=== PATIENT | male | born 1975 | race Caucasian/White ===

== ENCOUNTER 2020-11-23 16:58 | Outpatient (CLI) | payer OTHER, SELFPAY | END 2020-11-23 16:59 | disposition home or self-care (01) | LOC: ANHCOVIDVC 16:58 | PROVIDERS: PCP Family Medicine | DX: Z23 Encounter for immunization (principal) | CPT/HCPCS: 0001A; 91300 ==

== ENCOUNTER 2020-12-14 17:01 | Outpatient (CLI) | payer OTHER, SELFPAY | END 2020-12-14 17:02 | disposition home or self-care (01) | LOC: ANHCOVIDVC 17:01 | PROVIDERS: PCP Family Medicine | DX: Z23 Encounter for immunization (principal) | CPT/HCPCS: 0002A; 91300 ==

== ENCOUNTER 2024-11-26 00:43 | Inpatient (IN) | payer BC, SELFPAY ==
[2024-11-26] VITALS (15 sets, daily range): BP systolic 115–153; BP diastolic 51–102; PULSE 96–127; RESP 18–28; TEMP 36.7–38.1; O2SAT 90–100; BMI 38.6
--- NOTE | ~2024-11-26 | CT_ITS ---
CT of the Abdomen and Pelvis: Indication: Abdominal pain Technique: 2.5 mm axial scans were obtained through the abdomen and pelvis following intravenous adm inistration of 100 cc of Omnipaque 350. Dose reduction technique was used on this scan by utilizing a utomated exposure control and iterative reconstruction technique. The dose-length product (DLP) was 1 749.61 mGy-cm. Findings: Scans through the lung bases demonstrate 3 mm right middle lobe nodule. The liver, spleen, pancreas, adrenals and kidneys are within normal limits. There is cholelithiasis, including large peripherally calcified 3.9 cm stone. There is gallbladder wall thickening and pericho lecystic inflammatory change. There are atherosclerotic calcifications of the aorta. Small shotty ret roperitoneal lymph nodes are not enlarged by size criteria. No bowel obstruction or bowel wall thickening. There is no evidence to suggest acute appendicitis. Images through the pelvis were performed. Urinary bladder unremarkable. No pelvic mass. No ascites. Bilateral L5 pars interarticularis defects are noted. Impression: Acute cholecystitis with underlying cholelithiasis. Reviewed, dictated and finalized at [facility]. Impression: Acute cholecystitis with underlying cholelithiasis.
--- OUTSIDE RECORDS SUMMARY | 2024-11-26 00:46 | XMS_ITS | Clinical Summary ---
Author Organization [facility] Address [address] [place] [address] Care Team Providers Care Compounding And Finishing Supervisor Name Role Phone Mora Ashley RUPESH Primary Care Provider [phone] Allergies No known active allergies Medications varenicline, starter pack, (CHANTIX STARTING MONTH ) 0.5 MG X 11 & 1 MG X 42 tabletIndication s:Encounter for smoking cessation counseling,Clement goldberg smoker Days 1 to 3: 0.5 mg once daily.Days 4 to 7: 0.5 mg twice daily.Mainte nance (day 8 and later): 1 mg twice daily 53 tablet 5 Active tirzepatide (MOUNJARO) 2.5 MG/0.5ML injectionIndicat ions:Diabetes Mellitus Inject 2.5 mg into the skin every 7 days. Indications: Diabetes 6 mL 1 5 Active lisinopril (PRINIVIL) 10 MG tabletIndication s:Primary hypertension Take 1 tablet (10 mg total) by mouth daily. 90 tablet 3 5 Active atorvastatin (LIPITOR) 20 MG tabletIndication s:Dyslipidemia Take 1 tablet (20 mg total) by mouth nightly at bedtime. 90 tablet 3 5 Active metFORMIN ER (GLUCOPHAGE-XR) 500 MG 24 hr tabletIndication s:Type 2 diabetes mellitus with hyperglycemia, without long-term current use of insulin ([facility] HHS/HCC) Take 2 tablets (1,000 mg total) by mouth 2 (two) times daily with meals. 360 tablet 3 5 Active atorvastatin (LIPITOR) 20 MG tablet Take 1 tablet (20 mg total) by mouth. 11/09/19 Discontinu ed(Reorder ) lisinopril (PRINIVIL) 10 MG tablet Take 1 tablet (10 mg total) by mouth daily. 11/09/19 Discontinu ed(Reorder ) tirzepatide (MOUNJARO) 2.5 MG/0.5ML injectionIndicat ions:Diabetes Mellitus Inject 2.5 mg into the skin every 7 days. Indications: Diabetes 2 mL 1 11/09/19 Discontinu ed(Reorder ) Active Problems Problem Noted Date Diagnosed Date Dyslipidemia 11/10/2024 Current smoker 11/10/2024 Hypertension 08/23/2024 Type 2 diabetes mellitus wit h hyperglycemia, without long-term current use of insulin ([facility]) 08/23/2024 Vitamin D deficiency, unspecified 08/23/2024 Class 3 severe obesity due t o excess calories with serious comorbidity and body mass index (BMI) of 40.0 to 44.9 in adult 08/23/2024 Encounters Date Type Department Care Team Description 11/16/2024 Telephone [facility] Family & Internal Medicine [address] [phone] Mora Ashley FNP Lab Results 11/13/2024 9:55 AM CDT - 11/13/2024 11:59 PM CDT Hospital Encounter [facility] [place] [address] Mora Ashley FNP Discharge Disposition: Home or Self Care (Routine Discharge) 11/13/2024 Travel 11/08/2024 3:20 PM CDT Office Visit [facility] Internal [address] [phone] Mora Ashley FNP Diabetes (Patient here today 1 month f/u- starting mounjaro- tolerating well- no new concerns ); Nicotine Dependence (Patient would like to stop smoking ) 11/08/2024 Travel 09/23/2024 3:20 PM PROGRAMMING COORDINATOR Office Visit [facility] Family & Internal [address] [phone] Mora Ashley, RUPESH Hypertension (1 month follow up ); Diabetes (1 month follow up ) 09/23/2024 Travel from Last 3 Months Immunizations Immunization Administration Dates Next Due Fluzone (IIV3, Trivalent, 0.5 ML Prefilled Syrin ge) 08/23/2024 Influenza Adult (Generic) 05/26/2022 Pneumococcal (Prevnar 20) 08/23/2024 Tdap (Adacel) 08/23/2024 Family History Medical History Relation Comments Cancer Maternal Aunt 1 Cancer Maternal Aunt 2 Breast with mets Cancer Maternal Aunt 3 Pancreatic Cancer Maternal Grandmother Lung Cancer Maternal Uncle 1 Cancer Maternal Uncle 2 Lung Cancer Mother Lung with mets Dementia Mother Diabetes Mother Kidney Disease Mother Cancer Paternal Grandfather Colon with mets Diabetes Sister Relation Status Comments Maternal Aunt 1 Maternal Aunt 2 Maternal Aunt 3 Maternal Grandmother Maternal Uncle 1 Maternal Uncle 2 Mother Paternal Grandfather Sister Social History Tobacco Use Types Packs/Day Years Used Date Smoking Tobacco: Every Day Cigarettes 1.5 32.3 Started: 1992 Smokeless Tobacco: Never Tobacco Cessation:Ready to Q uit: Yes; Counseling Given: Yes Comments:Interested in quitting Alcohol Use Standard Drinks/Week Comments Yes 0 (1 standard drink = 0.6 oz pur e alcohol) Social/rare PHQ-2 Answer Date Recorded Patient Health Questionnaire-2 Score 0 08/23/2024 Sex and Gender Information Value Date Recorded Sex Assigned at Male 08/23/2024 9:06 AM PROGRAMMING COORDINATOR Legal Sex Male 7:57 PM CDT Gender Identity Male 08/23/2024 9:06 AM PROGRAMMING COORDINATOR Sexual Orientation Not on file Last Filed Vital Signs Vital Sign Reading Time Taken Comments Blood Pressure 124/76 11/08/2024 3:17 PM CDT Pulse 85 11/08/2024 3:17 PM CDT Temperature 36.4 C (97.5 F) 11/08/2024 3:17 PM CDT Respiratory Rate 18 11/08/2024 3:17 PM CDT Oxygen Saturation 98% 11/08/2024 3:17 PM CDT Inhaled Oxygen Concentration - - Weight 124 kg (273 lb 6.4 oz) 11/08/2024 3:17 PM CDT Height 172.7 cm (5' 8 ) 11/08/2024 3:17 PM CDT Body Mass Index 41.57 11/08/2024 3:17 PM CDT Plan of Treatment Upcoming Encounters Date Type Department Care Team (Late st Contact Info) Description 12/09/2024 3:00 PM CDT Office Visit [facility] Family & Internal Medicine - [address] [phone] Mora Ashley, BRAND ANALYST [address] [place] [id number] Health Maintenance Due Date Last Done Comments Colorectal Cancer Screening Colonoscopy (10 Years) 1976 Annual Physical 1979 Diabetes: Retinopathy Eye Exam 1994 Hepatitis C 1994 Hepatitis B Vaccines (1 of 3 - 19+ 3-dose series) 1995 Hemoglobin A1C 02/07/2025 11/08/2024, 08/23/2024 COVID-19 Vaccine ( season) 2025 05/26/2022, 09/16/2021, 12/14/2020, Additional history exists Postponed from 04/11/2024 (Patient Refused) Kidney Health Evaluation 11/13/2025 11/13/2024 Lipid Panel 11/13/2025 11/13/2024 DTaP, Tdap and Td Vaccines (2 - Td or Tdap) 08/23/2034 08/23/2024 PHQ-2 (Physician [place]) Completed 08/23/2024 Pneumococcal Vaccine: Pediatrics (0 to 5 Years) and At-Risk Patients (6 to 49 Years) Completed 08/23/2024 Meningococcal B Vaccine Aged Out No l onger eligible based on patient's age to complete this topic Meningococcal Vaccine Aged Out No chris kwadwo eligible based on patient's age to complete this topic RSV Immunizations Under 20 Months Aged Out No longer eligible based on patient's age to complete this topic Procedures Procedure Name Priority Date/Time Associated Diagnosis Comments MAGNESIUM Routine 11/13/2024 10:33 AM CDT Primary hypertension FOLIC ACID SERUM Routine 11/13/2024 10:3 3 AM CDT Type 2 diabetes mellitus with hyperglycemia, without long-term current use of insulin ([facility]) VITAMIN B-12 Routine 11/13/2024 10:33 AM CDT Type 2 diabetes mellitus with hyperglycemia, without long-term current use of insulin ([facility]) COMPREHENSIVE METABOLIC PANEL Routine 11/13/2024 10:33 AM CDT Type 2 diabetes mellitus with hyperglycemia, without long-term current use of insulin ([facility]) Primary hypertension URIC ACID BLOOD Routine 11/13/2024 10:33 AM CDT Type 2 diabetes mellitus with hyperglycemia, without long-term current use of insulin ([facility]) Primary hypertension VITAMIN D, 25 OH Routine 11/13/2024 10:3 3 AM CDT Vitamin D deficiency, unspecified TSH W/REFLEX Routine 11/13/2024 10:33 AM CDT Type 2 diabetes mellitus with hyperglycemia, without long-term current use of insulin ([facility]) Primary hypertension LIPID PANEL Routine 11/13/2024 10:33 AM CDT Type 2 diabetes mellitus with hyperglycemia, without long-term current use of insulin ([facility]) Primary hypertension CBC W/DIFF AUTOMATED Routine 11/13/2024 10:33 AM CDT Type 2 diabetes mellitus with hyperglycemia, without long-term current use of insulin ([facility]) Primary hypertension ALBUMIN URINE RANDOM W/CREATININE Routine 11/13/2024 10:30 AM CDT Type 2 diabetes mellitus with hyperglycemia, without long-term current use of insulin ([facility]) HC URINALYSIS AUTO W/O MICRO Routine 11/13/2024 10:30 AM CDT Type 2 diabetes mellitus with hyperglycemia, without long-term current use of insulin ([facility]) Primary hypertension HEMOGLOBIN, GLYCOSYLATED Routine 11/08/2024 3:43 PM CDT Type 2 diabetes mellitus with hyperglycemia, without long-term current use of insulin ([facility] HHS/HCC) COLLECT.CAPILLARY (FNGR,HEEL,EAR) Routine 11/08/2024 3:29 PM CDT Type 2 diabetes mellitus with hyperglycemia, without long-term current use of insulin ([facility] HHS/HCC) from Last 3 Months Results * TSH W/REFLEX (11/13/2024 10:33 AM CDT) TSH 1.200 0.358 - 3.74 uIU/ML 11/13/2024 11:52 AM CDT [facility] Comment: HIGH DOSES OF BIOTIN MAY INTERFERE WITH THIS TEST RESULT. CORRELATION TO CLINICAL HISTORY AND PRESENTATION RECOMMENDED. FREE T4 NOT INDICATED 11/13/2024 10:3 3 AM CDT Mora Ashley [facility] Final Result [facility] [address] [place] [address], * VITAMIN B-12 (11/13/2024 10:33 AM CDT) Pathologist [facility] VITAMIN B12 S/P/B 361 254 - 1,320 PG/ML 11/13/2024 12:11 PM CDT [facility] 11/13/2024 10:3 3 AM CDT [facility] Final Result [facility] [address] [place] [address], [place] [phone] * (ABNORMAL) COMPREHENSIVE METABOLIC PANEL (11/13/2024 10:33 AM CDT) Pathologist [facility] GLUCOSE 171(H) 70 - 99 MG/DL 11/13/2024 11:52 AM CDT [facility] BUN 10 7 - 18 MG/DL 11/13/2024 11:52 AM T [facility] CREATININE S/P/B 0.95 0.7 - 1.3 MG/DL 11/13/2024 11:52 AM CDT [facility] SODIUM S/P/B 139 136 - 145 MMOL/L 11/13/2024 11:52 AM T [facility] POTASSIUM S/P/B 4.6 3.5 - 5.1 MMOL/L 11/13/2024 11:52 AM T [facility] CHLORIDE S/P/B 108 97 - 115 MMOL/L 11/13/2024 11:52 AM T [facility] CO2 28.8 21 - 32 MMOL/L 11/13/2024 11:52 AM T [facility] CALCIUM S/P/B 9.1 8.5 - 10.1 MG/DL 11/13/2024 11:52 AM T [facility] BILIRUBIN TOTAL S/P/B 0.4 0.2 - 1.2 MG/DL 11/13/2024 11:52 AM T [facility] Comment: THIS ASSAY IS NOT RECOMMENDED FOR PATIENTS UNDERGOING TREATMENT WITH ELTROMBOPAG DUE TO THE POTENTIAL FOR FALSELY ELEVATED RESULTS. TOTAL PROTEIN S/P/B 7.7 6.4 - 8.2 G/DL 11/13/2024 11:52 AM T [facility] ALBUMIN S/P/B 3.7 3.4 - 5.0 G/DL 11/13/2024 11:52 AM T [facility] AST 31 15 - 37 U/L 11/13/2024 11:52 AM CDT [facility] ALT 60 16 - 60 U/L 11/13/2024 11:52 AM CDT [facility] ALKALINE PHOSPHATASE S/P/B 86 50 - 136 U/L 11/13/2024 11:52 AM CDT [facility] ANION GAP 2.2 2 - 10 MMOL/L 11/13/2024 11:52 AM CDT [facility] BUN CREATININE RATIO 10.5 6 - 26 11/13/2024 11:52 AM CDT [facility] A/G RATIO 0.9(L) 1.0 - 2.0 RATIO 11/13/2024 11:52 AM CDT [facility] GFR ESTIMATE >90 >90 ML/MIN/1.7 3 M2 11/13/2024 11:52 AM CDT [facility] Comment: NOTE: eGFR is not calculated for patients <18 years of age or gender unknown. This is an estimated GFR calculation using the new CKD EPI creatinine equation without race and so does not require a correction factor for race. This estimated GFR should not be used for calculating drug doses. 11/13/2024 10:3 3 AM CDT Mora Ashley [facility] Final Result [facility] [address] [place] [address], * (ABNORMAL) LIPID PANEL (11/13/2024 10:33 AM CDT) CHOLESTEROL 224(H) <200 MG/DL 11/13/2024 11:52 AM CDT [facility] TRIGLYCERIDES 118 <150 MG/DL 11/13/2024 11:52 AM CDT [facility] HDL 29(L) >40.0 MG/DL 11/13/2024 11:52 AM CDT [facility] LDL (CALCULATED) 171(H) <100 MG/DL 11/13/2024 11:52 AM CDT [facility] NON HDL CHOLESTEROL 195(H) <130 MG/DL 11/13/2024 11:52 AM CDT [facility] CHOL/HDL RATIO 7.7(H) 0.0 - 4.5 11/13/2024 11:52 AM CDT [facility] VLDL CALCULATION 24 5 - 55 MG/DL 11/13/2024 11:52 AM CDT [facility] LIPID INTERPRETATION 11/13/2024 11:52 AM CDT [facility] Comment: [facility] [[email or web address] REPORT RECOMMENDATIONS: ADULT CHILD LOW RISK: CHOLESTEROL <200 <170 TRIGLYCERIDE <150 --- HDL >=60 --- LDL <100 <110 BORDERLINE: CHOLESTEROL 200-239 170-199 TRIGLYCERIDE 150-199 --- HDL 40-59 --- LDL 100-159 110-129 HIGH RISK: CHOLESTEROL >=240 >=200 TRIGLYCERIDE >=200 --- HDL <40 --- LDL >=160 >=130 11/13/2024 10:3 3 AM CDT Mora Ashley [facility] Final Result Performing Organization Address City/[facility]/ZIP Co de Phone Number [facility] [address] [place] [address], [place] [phone] * (ABNORMAL) FOLIC ACID SERUM (11/13/2024 10:33 AM CDT) FOLATE 18.6(H) 3.1 - 17.5 NG/ML 11/13/2024 12:11 PM CDT [facility] 11/13/2024 10:3 3 AM CDT Mora Ashley [facility] Final Result [facility] [address] [place] [address], * (ABNORMAL) CBC W/DIFF AUTOMATED (11/13/2024 10:33 AM CDT) WBC 7.79 4.5 - 11.0 x10'3/uL 11/13/2024 11:24 AM CDT [facility] RBC 5.31 4.70 - 6.10 x10'6/uL 11/13/2024 11:24 AM CDT [facility] HGB 17.4 14.0 - 18.0 G/DL 11/13/2024 11:24 AM CDT [facility] HCT 50.3 43.0 - 54.0 % 11/13/2024 11:24 AM CDT [facility] MCV 94.7(H) 80.0 - 94.0 FL 11/13/2024 11:24 AM CDT [facility] MCH 32.8(H) 27.0 - 31.0 PG 11/13/2024 11:24 AM CDT [facility] MCHC 34.6 32.0 - 36.0 G/DL 11/13/2024 11:24 AM CDT [facility] RDW 12.5 11.5 - 14.5 % 11/13/2024 11:24 AM CDT [facility] PLT 209 130 - 400 x10'3/uL 11/13/2024 11:24 AM CDT [facility] MPV 10.0 9.3 - 12.2 FL 11/13/2024 11:24 AM CDT [facility] DIFFERENTIAL TYPE AUTOMATED DIFFERENTIAL 11/13/2024 11:24 AM CDT [facility] NEUTROPHILS % 48.7 % 11/13/2024 11:24 AM CDT [facility] LYMPHOCYTES % 36.6 % 11/13/2024 11:24 AM CDT [facility] MONOCYTES % 8.1 % 11/13/2024 11:24 AM CDT [facility] EOSINOPHILS 6.2 % 11/13/2024 11:24 AM CDT [facility] BASOPHILS 0.3 % 11/13/2024 11:24 AM CDT [facility] IMMATURE GRANS % 0.1 % 11/14/19 11:24 AM CDT [facility] ABS. NEUTROPHILS 3.80 1.80 - 7.70 x10'3/uL 11/13/2024 11:24 AM CDT [facility] ABS. LYMPHOCYTES 2.85 1.00 - 4.80 x10'3/uL 11/13/2024 11:24 AM CDT [facility] ABS. MONOCYTES 0.63 0.30 - 0.82 x10'3/uL 11/13/2024 11:24 AM CDT [facility] ABS. EOSINOPHILS 0.48 0.04 - 0.54 x10'3/uL 11/13/2024 11:24 AM CDT [facility] ABS. BASOPHILS 0.02 0.01 - 0.08 x10'3/uL 11/13/2024 11:24 AM CDT [facility] ABS. IMMATURE GRANULOCYTES 0.01 0.00 - 0.49 x10'3/uL 11/13/2024 11:24 AM CDT [facility] 11/13/2024 10:3 3 AM CDT us [facility] Final Result [facility] [address] [place] [address], [place] [phone] * (ABNORMAL) VITAMIN D, 25 OH (11/13/2024 10:33 AM CDT) VITAMIN D 25 HYDROXY S/P/B 26(L) 30 - 100 NG/ML 11/13/2024 11:55 AM CDT [facility] Comment: INTERPRETATION DEFICIENT <20 INSUFFICIENT 20-29 SUFFICIENT 30-100 11/13/2024 10:3 3 AM CDT us Mora Ashley [facility] Final Result [facility] [address] [place] [address], [place] [phone] * MAGNESIUM (11/13/2024 10:33 AM CDT) MAGNESIUM 2.3 1.8 - 2.4 MG/DL 11/13/2024 11:52 AM CDT [facility] 11/13/2024 10:3 3 AM CDT us Mora Ashley [facility] Final Result [facility] [address] [place] [address], [place] [phone] * URIC ACID BLOOD (11/13/2024 10:33 AM CDT) URIC ACID 4.9 3.5 - 7.2 MG/DL 11/13/2024 11:52 AM CDT [facility] 11/13/2024 10:3 3 AM CDT us Mora Ashley BRAND ANALYST LABORATORY Final Result [facility] [address] [place] [address], * (ABNORMAL) URINALYSIS (11/13/2024 10:30 AM CDT) SPECIMEN TYPE URINE CLEAN CATCH 11/13/2024 10:01 AM CDT [facility] COLOR (U) LIGHT YELLOW 11/13/2024 11:31 AM CDT [facility] TRANSPARENCY CLEAR 11/13/2024 11:31 AM CDT [facility] SPECIFIC GRAVITY (U) 1.019 1.001 - 1.030 11/13/2024 11:31 AM CDT [facility] U PH 5.5 5.0 - 9.0 11/13/2024 11:31 AM CDT [facility] LEUKOCYTES (U) 500(A) NEGATIVE 11/13/2024 11:31 AM CDT [facility] NITRITES NEGATIVE NEGATIVE 11/13/2024 11:31 AM T [facility] PROTEIN RANDOM (U) 10 <30 MG/DL 11/13/2024 11:31 AM T [facility] GLUCOSE (U) NORMAL NORMAL MG/DL 11/13/2024 11:31 AM CDT [facility] KETONES MG/DL (U) NEGATIVE NEGATIVE MG/DL 11/13/2024 11:31 AM T [facility] UROBILINOGEN NORMAL NORMAL MG/DL 11/13/2024 11:31 AM T [facility] BILIRUBIN (U) NEGATIVE NEGATIVE MG/DL 11/13/2024 11:31 AM CDT [facility] BLOOD (U) NEGATIVE NEGATIVE 11/13/2024 11:31 AM CDT [facility] MUCUS RARE /LPF 11/13/2024 11:31 AM CDT [facility] WBC/HPF 39(H) <6 /HPF 11/13/2024 11:31 AM CDT [facility] RBC/HPF 4 <6 /HPF 11/13/2024 11:31 AM CDT [facility] SQUAMOUS EPITHELIALS RARE /HPF 11/13/2024 11:31 AM CDT [facility] URINE SPECIMEN OBTAINED BY CLEAN CATCH PROCEDURE / Unknown 11/13/2024 10:30 AM CDT us Mora Kilzer BRAND ANALYST URINE ORDERABLES Final Result Performing Organization Address City/[facility]/ZIP Co de Phone Number [facility] [address] [place] [address], [place] [phone] * (ABNORMAL) ALBUMIN/CREATININE RATIO, RANDOM URINE (11/13/2024 10:30 AM CDT) CREATININE (U) 149.0 39 - 259 MG/DL 11/13/2024 11:47 AM CDT [facility] MICROALBUMIN (U) 9.2(H) <2.0 mg/dL 11/14/19 11:47 AM CDT [facility] ALBUMIN/CREAT RATIO 61.7(H) <30 MG/G 11/13/2024 11:47 AM CDT [facility] URINE SPECIMEN / Unknown 11/13/2024 10:30 AM CDT us Mora Kilzer BRAND ANALYST URINE ORDERABLES Final Result [facility] [address] [place] [address], [place] [address], * (ABNORMAL) HEMOGLOBIN, GLYCOSYLATED (11/08/2024 3:43 PM CDT) HGB A1C 10.0(A) % [facility] 11/08/2024 3:43 PM CDT [facility] Final Result [facility] [address] [place] [address], from Last 3 Months Insurance Care Teams Compounding And Finishing Supervisor Relationship Specialty Start Date End Date Mora Ashley FNP [facility] [place] [address] PCP - General 08/22/24
[2024-11-26 01:00] LABS: Basophils Percent Auto 0.2 % (0.2-1.2); Eosinophils Percent Auto 0.2 % (0-4.4); Hematocrit 48.5 % (42.0-52.0); Hemoglobin 16.8 g/dL (14.0-18.0); Immature Granulocyte Percent A 0.5 % (0-0.5); Lymphocytes Absolute Auto 1.65 K/mm3 (0.9-3.2); Lymphocytes Percent Auto 8.8 % (18.3-44.2); Mean Corpuscular HGB Conc 34.6 g/dl (32-36); Mean Corpuscular Volume 95.3 fl (80-100); Mean Platelet Volume 9.7 fl (7.4-10.4); Monocytes Absolute Auto 1.6 K/mm3 (0.1-0.6); Monocytes Percent Auto 8.5 % (2.6-8.5); Neutrophils Absolute Auto 15.4 K/mm3 (1.3-6.7); Neutrophils Percent Auto 81.8 % (45.5-73.1); Platelet Count Result 197 k/mm3 (150-375); Red Blood Count 5.09 M/mm3 (4.6-6.20); Red Cell Distribution Width 12.2 % (11.5-14.5); White Blood Count 18.8 K/mm3 (4.5-10.0)
[2024-11-26 01:09] LABS: Alanine Aminotransferase 158 U/L (6-50); Albumin Level 4.3 g/dL (3.5-5.1); Alkaline Phosphatase 135 U/L (38-126); Anion Gap 11 mmol/L (4-12); Aspartate Amino Transferase 54 U/L (17-59); Bilirubin,Total 1.5 mg/dL (0.2-1.3); Blood Urea Nitrogen 11 mg/dL (9-20); Calcium 8.9 mg/dL (8.4-10.2); Carbon Dioxide 25 mmol/L (22-30); Chloride 100 mmol/L (98-107); Estimated CRCL calculation 135 ml/min; Estimated Glomerular Filt Rate > 60; Glucose 221 mg/dL (65-110); Lipase 44 U/L (23-300); Potassium 4.5 mmol/L (3.4-5.0); Sodium 136 mmol/L (137-145)
[2024-11-26 01:21] LABS: Add Urine Microscopic? YES; Appearance Urine Clear (Clear); Bacteria Urine Rare /hpf; Bilirubin Urine 2+ (Negative); Blood Urine Negative (Negative); Color Urine Dark Yellow (Yellow); Glucose Urine UA 3+ mg/dL (Negative); Ketones Urine 4+ mg/dL (Negative); Leukocyte Esterase Ur Trace LEU/UL (Negative); Nitrate Urine Negative (Negative); Protein Urine 2+ mg/dL (Negative); RBC Urine 0-2 /hpf (0-2); Specific Grav Ur 1.041 (1.001-1.035); Squamous Epithelial Cell Urine None Seen /hpf (Few); WBC Urine 0-5 /hpf (0-3); pH Urine 5.5 (5.0-9.0)
--- NOTE | 2024-11-26 05:24 | ED_ITS ---
HPI - Abdominal Pain General Chief Complaint: Abdominal Pain Stated Complaint: constipation for 3 days Time Seen by Provider: 11/26/24 05:21 History of Present Illness HPI narrative: Patient is a 49-year-old male who presents emergency department this morning complaining of diffuse abdominal pain, nausea, and constipation. Patient states that his last bowel movement was 4 days ago which is very unusual for him. Patient states that he is also passing very little gas. Denies any recent illness, fevers or chills. Related Data Allergies Allergy/AdvReac Type Severity Reaction Status Date / Time No Known Allergies Allergy Verified 11/26/24 00:43 Review of Systems 2 Review of Systems: All systems are reviewed and are negative unless stated otherwise in the HPI. [facility] Social History Social History Smoking status: Current every day smoker Alcohol intake: current Exam 2 Narrative: General: Alert, awake, afebrile, in no acute distress. HEENT: PERRL, no rhinorrhea, no post nasal drip, oropharynx clear. Neck: Trachea midline, no JVD, no lymphadenopathy. Cardiovascular: Regular rate and rhythm, no murmurs, rubs or gallops, no peripheral edema. Respiratory: Clear to auscultation bilaterally, no tachypnea, no wheezing, no rhonchi, no rubs, no respiratory distress. Abdomen: Hard, tenderness so palpation over the epigastric region and right upper quadrant, distended, no rebound, no guarding, no peritoneal signs. Musculoskeletal: No joint swelling or deformity, normal muscle tone. Skin: No rashes or petechia, no signs of infection. Psychiatric: Alert and oriented, normal behavior and judgment for situation. Neurological: Alert and oriented to person, place, and time. Follows all commands. No focal deficits, speech is clear and fluent. MDM - Abdominal Pain MDM Narrative Medical decision making narrative: The patient was evaluated by myself in the emergency department. History is obtained from patient who is an independent historian and physical exam was performed. External medical records were reviewed at this time. IV was established and pertinent tests were ordered. Patient was administered a total of 8 mg of IV morphine and 4 mg IV Zofran and 1 L IV fluid bolus with normal saline. Laboratory results obtained revealing a leukocytosis of 18.8, glucose 221, total bili 1.5, ALT 158, alkaline phosphatase 135, otherwise unremarkable. Urinalysis revealed 3+ glucose, 4+ ketones and trace leuk esterases. At this time patient was administered a 2nd IV fluid bolus with normal saline. Imaging studies obtained included CT abdomen pelvis with IV contrast which was independently interpreted by me revealing: Acute cholecystitis with underlying cholelithiasis. Case was discussed with the on-call hospitalist Dr. Calhoun and the on-call general surgeon Dr. Antonio at [phone] who both accepted admission and consultation. Patient was started on IV antibiotics with Zosyn after blood cultures were obtained. Patient continues to have pain at this time 1 mg of IV Dilaudid was administered. Differential diagnosis considerations include constipation, bowel obstruction, appendicitis, pancreatitis, cholecystitis. Comorbidities impacting this visit include none. I have evaluated and discussed social determinants of health with the patient that could potentially impact subsequent diagnosis and treatment plans. On repeat assessment of the patient, reevaluation revealed that the patient is doing well and is in no acute distress. Patient symptoms have improved since he arrived to our emergency department. Repeat vital signs were all reviewed and noted to be stable. Differential diagnosis and treatment plan were discussed with the patient at bedside. Patient agrees with discussion and after shared medical decision making agrees with admission. All questions were answered to the patient's satisfaction. Lab Data 11/26/24 00:54 11/26/24 00:54 Labs: Lab Results 11/26/24 Range/Units 00:54 WBC 18.8 H (4.5-10.0) K/mm3 RBC 5.09 (4.6-6.20) M/mm3 Hgb 16.8 (14.0-18.0) g/dL Hct 48.5 (42.0-52.0) % MCV 95.3 (80-100) fl MCH 33.0 (26-34) pg MCHC 34.6 (32-36) g/dl RDW 12.2 (11.5-14.5) % Plt Count 197 (150-375) k/mm3 MPV 9.7 (7.4-10.4) fl Immature Gran % (Auto) 0.5 (0-0.5) % Neut % (Auto) 81.8 H (45.5-73.1) % Lymph % (Auto) 8.8 L (18.3-44.2) % [place] % (Auto) 8.5 (2.6-8.5) % Eos % (Auto) 0.2 (0-4.4) % Baso % (Auto) 0.2 (0.2-1.2) % Lymph # (Auto) 1.65 (0.9-3.2) K/mm3 [place] # (Auto) 1.6 H (0.1-0.6) K/mm3 Eos # (Auto) 0.0 (0-0.3) K/mm3 Baso # (Auto) 0.0 (0.0-0.1) K/mm3 Abs Immat Gran (auto) 0.10 H (0.00-0.031) K/mm3 Absolute Neuts (auto) 15.4 H (1.3-6.7) K/mm3 Absolute Nucleated RBC 0.000 (0.0-0.012) K/mm3 Nucleated RBC % 0.0 (0.0-0.2) % Sodium 136 L (137-145) mmol/L Potassium 4.5 (3.4-5.0) mmol/L Chloride 100 (98-107) mmol/L Carbon Dioxide 25 (22-30) mmol/L Anion Gap 11 (4-12) mmol/L BUN 11 (9-20) mg/dL Creatinine 0.75 (0.7-1.3) mg/dL Estim Creat Clear Calc 135 ml/min Estimated GFR > 60 (59 - ) Glucose 221 H (65-110) mg/dL Calcium 8.9 (8.4-10.2) mg/dL Total Bilirubin 1.5 H (0.2-1.3) mg/dL AST 54 (17-59) U/L ALT 158 H (6-50) U/L Alkaline Phosphatase 135 H (38-126) U/L Total Protein 8.0 (6.3-8.2) g/dL Albumin 4.3 (3.5-5.1) g/dL Lipase 44 (23-300) U/L Urine Color Dark yellow (Yellow) Urine Appearance Clear (Clear) Urine pH 5.5 (5.0-9.0) Ur Specific [place] 1.041 H (1.001-1.035) Urine Protein 2+ H (Negative) mg/dL Urine Glucose (UA) 3+ H (Negative) mg/dL Urine Ketones 4+ H (Negative) mg/dL Ur Blood (Man) Negative (Negative) Urine Nitrate Negative (Negative) Urine Bilirubin 2+ H (Negative) Urine Urobilinogen 1.0 (<2.0) mg/dL Leukocyte Esterase Rfl Trace H (Negative) SELIN/UL Urine RBC 0-2 (0-2) /hpf Urine WBC 0-5 (0-3) /hpf Ur Squamous Epith Cells None seen (Few) /hpf Urine Bacteria Rare /hpf Urine Casts 3-5 Imaging Data Radiologist's impression: ITS Impressions Abdomen/Pelvis CT 11/26/24 06:19 Impression: Acute cholecystitis with underlying cholelithiasis. Discharge Plan Discharge Clinical Impression: Abdominal pain, Acute cholecystitis, Dehydration Patient Disposition: Still a Patient Condition: Improved Instructions: Antibiotic Form Patient Language: Armenian Prescriptions: No Action atorvastatin 20 mg tablet 20 mg PO DAILY Qty: 90 3RF Trulicity 3 mg/0.5 mL pen injector 3 mg subcut WEEKLY Qty: 2 2RF metformin 1,000 mg tablet 1,000 mg PO BID Qty: 180 6RF lisinopril 10 mg tablet 10 mg PO DAILY Qty: 90 0RF Follow-up/Referrals: Luke Orozco MD [Primary Care Provider] - Time of Disposition: 06:44
[2024-11-26] MEDS: MORPHINE SULFATE (*CRX) 4 MG/ML INJ IV PUSH (05:38)
[2024-11-26] MEDS: SODIUM CHLORIDE 0.9% IV 1,000 ML 999 ML IV CONT ×2 (05:39→06:58)
--- OUTSIDE RECORDS SUMMARY | 2024-11-26 06:48 | XMS_ITS | Clinical Summary ---
Author Organization [facility] Address [address] [place] [address] Care Team Providers Care Sliver Handler Name Role Phone Mora Ashley RUPESH Primary Care Provider [phone] Allergies No known active allergies Medications varenicline, [...] hyperglycemia, without long-term current use of insulin ([facility]/HCC HHS/HCC) Take 2 tablets (1,000 mg total) [...] hyperglycemia, without long-term current use of insulin ([facility]) 08/23/2024 Vitamin D deficiency, unspecified 08/23/2024 Class 3 severe obesity due t o excess calories with serious comorbidity and body mass index (BMI) of 40.0 to 44.9 in adult 08/23/2024 Encounters Date Type Department Care Team Description 11/16/2024 Telephone [facility] Family & Internal Medicine [address] [phone] Mora Ashley FNP Lab Results 11/13/2024 9:55 AM CDT - 11/13/2024 11:59 PM CDT Hospital Encounter [facility] [place] [address] Mora Ashley FNP Discharge Disposition: Home or Self Care (Routine Discharge) 11/13/2024 Travel 11/08/2024 3:20 PM CDT Office Visit [facility] & Internal [address] [phone] Mora Ashley FNP Diabetes (Patient here today 1 month f/u- starting mounjaro- tolerating well- no new concerns ); Nicotine Dependence (Patient would like to stop smoking ) 11/08/2024 Travel 09/23/2024 3:20 PM COTTON SAMPLER Office Visit [facility] Family & Internal [address] [phone] Mora Ashley, RUPESH Hypertension (1 month follow [...] Sex Assigned at Male 08/23/2024 9:06 AM COTTON SAMPLER Legal Sex Male 7:57 PM CDT Gender Identity Male 08/23/2024 9:06 AM COTTON SAMPLER Sexual Orientation Not on file Last Filed [...] Description 12/09/2024 3:00 PM CDT Office Visit [facility] Family & Internal Medicine - [address] [phone] Mora Ashley, ROTARY FILTER OPERATOR [address] [place] [address] Health Maintenance Due Date Last Done Comments [...] Td or Tdap) 08/23/2034 08/23/2024 PHQ-2 (Physician Kaw) Completed 08/23/2024 Pneumococcal Vaccine: Pediatrics (0 to [...] hyperglycemia, without long-term current use of insulin ([facility] HHS/[facility]) VITAMIN B-12 Routine 11/13/2024 10:33 AM CDT Type 2 diabetes mellitus with hyperglycemia, without long-term current use of insulin ([facility] HHS/[facility]) COMPREHENSIVE METABOLIC PANEL Routine 11/13/2024 10:33 AM CDT Type 2 diabetes mellitus with hyperglycemia, without long-term current use of insulin ([facility]) Primary hypertension URIC ACID BLOOD Routine 11/13/2024 10:33 AM CDT Type 2 diabetes mellitus with hyperglycemia, without long-term current use of insulin ([facility]) Primary hypertension VITAMIN D, 25 OH Routine 11/13/2024 10:3 3 AM CDT Vitamin D deficiency, unspecified TSH W/REFLEX Routine 11/13/2024 10:33 AM CDT Type 2 diabetes mellitus with hyperglycemia, without long-term current use of insulin ([facility]) Primary hypertension LIPID PANEL Routine 11/13/2024 10:33 AM CDT Type 2 diabetes mellitus with hyperglycemia, without long-term current use of insulin ([facility]) Primary hypertension CBC W/DIFF AUTOMATED Routine 11/13/2024 10:33 AM CDT Type 2 diabetes mellitus with hyperglycemia, without long-term current use of insulin ([facility]) Primary hypertension ALBUMIN URINE RANDOM W/CREATININE Routine 11/13/2024 10:30 AM CDT Type 2 diabetes mellitus with hyperglycemia, without long-term current use of insulin ([facility]) HC URINALYSIS AUTO W/O MICRO Routine 11/13/2024 10:30 AM CDT Type 2 diabetes mellitus with hyperglycemia, without long-term current use of insulin ([facility]) Primary hypertension HEMOGLOBIN, GLYCOSYLATED Routine 11/08/2024 3:43 PM CDT Type 2 diabetes mellitus with hyperglycemia, without long-term current use of insulin ([facility] HHS/HCC) COLLECT.CAPILLARY (FNGR,HEEL,EAR) Routine 11/08/2024 3:29 PM CDT Type 2 diabetes mellitus with hyperglycemia, without long-term current use of insulin ([facility] HHS/HCC) from Last 3 Months Results * TSH W/REFLEX (11/13/2024 10:33 AM CDT) TSH 1.200 0.358 - 3.74 uIU/ML 11/13/2024 11:52 AM CDT [facility] Comment: HIGH DOSES OF BIOTIN MAY INTERFERE WITH THIS TEST RESULT. CORRELATION TO CLINICAL HISTORY AND PRESENTATION RECOMMENDED. FREE T4 NOT INDICATED 11/13/2024 10:3 3 AM CDT Mora Ashley [facility] Final Result [facility] [address] [place] [address], * VITAMIN B-12 (11/13/2024 10:33 AM CDT) Pathologist [facility] VITAMIN B12 S/P/B 361 254 - 1,320 PG/ML 11/13/2024 12:11 PM CDT [facility] 11/13/2024 10:3 3 AM CDT [facility] Final Result [facility] [address] [place] [address], [place] [phone] * (ABNORMAL) COMPREHENSIVE METABOLIC PANEL (11/13/2024 10:33 AM CDT) Pathologist [facility] GLUCOSE 171(H) 70 - 99 MG/DL 11/13/2024 11:52 AM CDT [facility] BUN 10 7 - 18 MG/DL 11/13/2024 11:52 AM T [facility] CREATININE S/P/B 0.95 0.7 - 1.3 MG/DL 11/13/2024 11:52 AM CDT [facility] SODIUM S/P/B 139 136 - 145 MMOL/L 11/13/2024 11:52 AM T [facility] POTASSIUM S/P/B 4.6 3.5 - 5.1 MMOL/L 11/13/2024 11:52 AM T [facility] CHLORIDE S/P/B 108 97 - 115 MMOL/L 11/13/2024 11:52 AM T [facility] CO2 28.8 21 - 32 MMOL/L 11/13/2024 11:52 AM T [facility] CALCIUM S/P/B 9.1 8.5 - 10.1 MG/DL 11/13/2024 11:52 AM T [facility] BILIRUBIN TOTAL S/P/B 0.4 0.2 - 1.2 MG/DL 11/13/2024 11:52 AM T [facility] Comment: THIS ASSAY IS NOT RECOMMENDED FOR PATIENTS UNDERGOING TREATMENT WITH ELTROMBOPAG DUE TO THE POTENTIAL FOR FALSELY ELEVATED RESULTS. TOTAL PROTEIN S/P/B 7.7 6.4 - 8.2 G/DL 11/13/2024 11:52 AM T [facility] ALBUMIN S/P/B 3.7 3.4 - 5.0 G/DL 11/13/2024 11:52 AM T [facility] AST 31 15 - 37 U/L 11/13/2024 11:52 AM CDT [facility] ALT 60 16 - 60 U/L 11/13/2024 11:52 AM CDT [facility] ALKALINE PHOSPHATASE S/P/B 86 50 - 136 U/L 11/13/2024 11:52 AM CDT [facility] ANION GAP 2.2 2 - 10 MMOL/L 11/13/2024 11:52 AM CDT [facility] BUN CREATININE RATIO 10.5 6 - 26 11/13/2024 11:52 AM CDT [facility] A/G RATIO 0.9(L) 1.0 - 2.0 RATIO 11/13/2024 11:52 AM CDT [facility] GFR ESTIMATE >90 >90 ML/MIN/1.7 3 M2 11/13/2024 11:52 AM CDT [facility] Comment: NOTE: eGFR is not calculated for patients <18 years of age or gender unknown. This is an estimated GFR calculation using the new CKD EPI creatinine equation without race and so does not require a correction factor for race. This estimated GFR should not be used for calculating drug doses. 11/13/2024 10:3 3 AM CDT Mora Ashley [facility] Final Result [facility] [address] [place] [address], * (ABNORMAL) LIPID PANEL (11/13/2024 10:33 AM CDT) CHOLESTEROL 224(H) <200 MG/DL 11/13/2024 11:52 AM CDT [facility] TRIGLYCERIDES 118 <150 MG/DL 11/13/2024 11:52 AM CDT [facility] HDL 29(L) >40.0 MG/DL 11/13/2024 11:52 AM CDT [facility] LDL (CALCULATED) 171(H) <100 MG/DL 11/13/2024 11:52 AM CDT [facility] NON HDL CHOLESTEROL 195(H) <130 MG/DL 11/13/2024 11:52 AM CDT [facility] CHOL/HDL RATIO 7.7(H) 0.0 - 4.5 11/13/2024 11:52 AM CDT [facility] VLDL CALCULATION 24 5 - 55 MG/DL 11/13/2024 11:52 AM CDT [facility] LIPID INTERPRETATION 11/13/2024 11:52 AM CDT [facility] Comment: [facility] REPORT RECOMMENDATIONS: ADULT CHILD LOW RISK: CHOLESTEROL <200 <170 TRIGLYCERIDE <150 --- HDL >=60 --- LDL <100 <110 BORDERLINE: CHOLESTEROL 200-239 170-199 TRIGLYCERIDE 150-199 --- HDL 40-59 --- LDL 100-159 110-129 HIGH RISK: CHOLESTEROL >=240 >=200 TRIGLYCERIDE >=200 --- HDL <40 --- LDL >=160 >=130 11/13/2024 10:3 3 AM CDT Mora Ashley [facility] Final Result Performing Organization Address City/[facility]/ZIP Co de Phone Number [facility] [address] [place] [address], [place] [phone] * (ABNORMAL) FOLIC ACID SERUM (11/13/2024 10:33 AM CDT) FOLATE 18.6(H) 3.1 - 17.5 NG/ML 11/13/2024 12:11 PM CDT [facility] 11/13/2024 10:3 3 AM CDT Mora Ashley [facility] Final Result [facility] [address] [place] [address], * (ABNORMAL) CBC W/DIFF AUTOMATED (11/13/2024 10:33 AM CDT) WBC 7.79 4.5 - 11.0 x10'3/uL 11/13/2024 11:24 AM CDT [facility] RBC 5.31 4.70 - 6.10 x10'6/uL 11/13/2024 11:24 AM CDT [facility] HGB 17.4 14.0 - 18.0 G/DL 11/13/2024 11:24 AM CDT [facility] HCT 50.3 43.0 - 54.0 % 11/13/2024 11:24 AM CDT [facility] MCV 94.7(H) 80.0 - 94.0 FL 11/13/2024 11:24 AM CDT [facility] MCH 32.8(H) 27.0 - 31.0 PG 11/13/2024 11:24 AM CDT [facility] MCHC 34.6 32.0 - 36.0 G/DL 11/13/2024 11:24 AM CDT [facility] RDW 12.5 11.5 - 14.5 % 11/13/2024 11:24 AM CDT [facility] PLT 209 130 - 400 x10'3/uL 11/13/2024 11:24 AM CDT [facility] MPV 10.0 9.3 - 12.2 FL 11/13/2024 11:24 AM CDT [facility] DIFFERENTIAL TYPE AUTOMATED DIFFERENTIAL 11/13/2024 11:24 AM CDT [facility] NEUTROPHILS % 48.7 % 11/13/2024 11:24 AM CDT [facility] LYMPHOCYTES % 36.6 % 11/13/2024 11:24 AM CDT [facility] MONOCYTES % 8.1 % 11/13/2024 11:24 AM CDT [facility] EOSINOPHILS 6.2 % 11/13/2024 11:24 AM CDT [facility] BASOPHILS 0.3 % 11/13/2024 11:24 AM CDT [facility] IMMATURE GRANS % 0.1 % 11/14/19 11:24 AM CDT [facility] ABS. NEUTROPHILS 3.80 1.80 - 7.70 x10'3/uL 11/13/2024 11:24 AM CDT [facility] ABS. LYMPHOCYTES 2.85 1.00 - 4.80 x10'3/uL 11/13/2024 11:24 AM CDT [facility] ABS. MONOCYTES 0.63 0.30 - 0.82 x10'3/uL 11/13/2024 11:24 AM CDT [facility] ABS. EOSINOPHILS 0.48 0.04 - 0.54 x10'3/uL 11/13/2024 11:24 AM CDT [facility] ABS. BASOPHILS 0.02 0.01 - 0.08 x10'3/uL 11/13/2024 11:24 AM CDT [facility] ABS. IMMATURE GRANULOCYTES 0.01 0.00 - 0.49 x10'3/uL 11/13/2024 11:24 AM CDT [facility] 11/13/2024 10:3 3 AM CDT us [facility] Final Result [facility] [address] [place] [address], [place] [phone] * (ABNORMAL) VITAMIN D, 25 OH (11/13/2024 10:33 AM CDT) VITAMIN D 25 HYDROXY S/P/B 26(L) 30 - 100 NG/ML 11/13/2024 11:55 AM CDT [facility] Comment: INTERPRETATION DEFICIENT <20 INSUFFICIENT 20-29 SUFFICIENT 30-100 11/13/2024 10:3 3 AM CDT us Mora Ashley [facility] Final Result [facility] [address] [place] [address], [place] [phone] * MAGNESIUM (11/13/2024 10:33 AM CDT) MAGNESIUM 2.3 1.8 - 2.4 MG/DL 11/13/2024 11:52 AM CDT [facility] 11/13/2024 10:3 3 AM CDT us Mora Ashley [facility] Final Result [facility] [address] [place] [address], [place] [phone] * URIC ACID BLOOD (11/13/2024 10:33 AM CDT) URIC ACID 4.9 3.5 - 7.2 MG/DL 11/13/2024 11:52 AM CDT [facility] 11/13/2024 10:3 3 AM CDT us Mora Ashley ROTARY FILTER OPERATOR LABORATORY Final Result [facility] [address] [place] [address], * (ABNORMAL) URINALYSIS (11/13/2024 10:30 AM CDT) SPECIMEN TYPE URINE CLEAN CATCH 11/13/2024 10:01 AM CDT [facility] COLOR (U) LIGHT YELLOW 11/13/2024 11:31 AM CDT [facility] TRANSPARENCY CLEAR 11/13/2024 11:31 AM CDT [facility] SPECIFIC GRAVITY (U) 1.019 1.001 - 1.030 11/13/2024 11:31 AM CDT [facility] U PH 5.5 5.0 - 9.0 11/13/2024 11:31 AM CDT [facility] LEUKOCYTES (U) 500(A) NEGATIVE 11/13/2024 11:31 AM CDT [facility] NITRITES NEGATIVE NEGATIVE 11/13/2024 11:31 AM T [facility] PROTEIN RANDOM (U) 10 <30 MG/DL 11/13/2024 11:31 AM T [facility] GLUCOSE (U) NORMAL NORMAL MG/DL 11/13/2024 11:31 AM CDT [facility] KETONES MG/DL (U) NEGATIVE NEGATIVE MG/DL 11/13/2024 11:31 AM T [facility] UROBILINOGEN NORMAL NORMAL MG/DL 11/13/2024 11:31 AM T [facility] BILIRUBIN (U) NEGATIVE NEGATIVE MG/DL 11/13/2024 11:31 AM CDT [facility] BLOOD (U) NEGATIVE NEGATIVE 11/13/2024 11:31 AM CDT [facility] MUCUS RARE /LPF 11/13/2024 11:31 AM CDT [facility] WBC/HPF 39(H) <6 /HPF 11/13/2024 11:31 AM CDT [facility] RBC/HPF 4 <6 /HPF 11/13/2024 11:31 AM CDT [facility] SQUAMOUS EPITHELIALS RARE /HPF 11/13/2024 11:31 AM CDT [facility] URINE SPECIMEN OBTAINED BY CLEAN CATCH PROCEDURE / Unknown 11/13/2024 10:30 AM CDT us Mora Kilzer ROTARY FILTER OPERATOR URINE ORDERABLES Final Result Performing Organization Address City/[facility]/ZIP Co de Phone Number [facility] [address] [place] [address], [place] [phone] * (ABNORMAL) ALBUMIN/CREATININE RATIO, RANDOM URINE (11/13/2024 10:30 AM CDT) CREATININE (U) 149.0 39 - 259 MG/DL 11/13/2024 11:47 AM CDT [facility] MICROALBUMIN (U) 9.2(H) <2.0 mg/dL 11/14/19 11:47 AM CDT [facility] ALBUMIN/CREAT RATIO 61.7(H) <30 MG/G 11/13/2024 11:47 AM CDT [facility] URINE SPECIMEN / Unknown 11/13/2024 10:30 AM CDT us Mora Kilzer ROTARY FILTER OPERATOR URINE ORDERABLES Final Result [facility] [address] [place] [address], [place] [address], * (ABNORMAL) HEMOGLOBIN, GLYCOSYLATED (11/08/2024 3:43 PM CDT) HGB A1C 10.0(A) % [facility] 11/08/2024 3:43 PM CDT [facility] Final Result [facility] [address] [place] [address], from Last 3 Months Insurance Care Teams Sliver Handler Relationship Specialty Start Date End Date Mora Ashley FNP [facility] [place] [address] PCP - General 08/22/24
[2024-11-26] MEDS: HYDROmorphone HCL INJ (*CRX) 2 MG/ML VIAL 1 MG IV PUSH ×3 (06:58→12:30)
[2024-11-26] MEDS: SODIUM CHLORIDE 0.9% IV 1,000 ML 100 ML IV CONT (08:07)
[2024-11-26] MEDS: PIPERACILLIN/TAZ 4.5G/NS 100ML 4.5 GM/100 ML BAG IVPB ×2 (08:07→14:46)
--- NOTE | 2024-11-26 08:37 | ECG_ITS ---
Test Date: 2024-11-26 08:50:55 Measurements Intervals Holt Rate: 118 P: 57 TN: 184 QRS: -34 QRSD: 102 T: 33 QT: 319 QTc: 448 Interpretive Statements SINUS TACHYCARDIA CONSIDER INFERIOR INFARCT, AGE INDETERMINATE ABNORMAL ECG No previous ECG available for comparison Electronically Signed On 11-26-2024 08:57:08 CDT by Carlos Sneed D.O.
--- NOTE | 2024-11-26 08:44 | P.HP_ITS ---
H&P: HPI History of Present Illness Date/Time: 11/26/24 08:44 Chief Complaint: Abdominal pain Narrative: Patient is a 49-year-old male who presents emergency department this morning complaining of diffuse abdominal pain, nausea, and constipation. Patient states that his last bowel movement was 4 days ago which is very unusual for him. Patient states that he is also passing very little gas. Denies any recent illness, fevers or chills. In the ED is vitals were stable. Laboratory resolved reviewed leukocytosis of 18.8 glucose of 221 total bilirubin 1.5 ALT 158 alkaline phosphatase 135 otherwise unremarkable UA reveals 3+ glucose 4+ ketones and trace leukocyte esterase. Lipase normal at 44. CT abdomen pelvis with IV contrast showed acute cholecystitis with underlying cholelithiasis General surgery has been consulted patient started on IV Zosyn blood cultures was obtained He Is admitted for further treatment. Review of Systems Review of Systems: - CONSTITUTIONAL: Denies weight loss, fe marcos and chills. - HEENT: Denies changes in vision and he aring - RESPIRATORY: Denies SOB and cough. - CV: Denies palpitations and CP. - GI: Ports abdominal pain, nausea, vom iting and denies diarrhea. - : Denies dysuria and urinary frequen cy. - MSK: Denies myalgia and joint pain. - SKIN: Denies rash and pruritus. - NEUROLOGICAL: Denies headache and sync ope. - PSYCHIATRIC: Denies recent changes in mood. Denies anxiety and depression. [facility] Social History Social History Smoking packs per day: 2 Smoking cigarettes per day: 40.0 Years smoked: 16 Smoking pack-years: 32.00 Smoking status: Current every day smoker Tobacco type: cigarettes Second hand tobacco smoke exposure: Yes Alcohol intake: never Substance use: never Do You Feel Safe in your Home?: Yes Lack of Transportation: No Lack of Food: Never True Current Housing: I Have Housing Concerned About Future Housing: No Difficulty Paying Gas/Electric Bills: No Difficulty Paying for Meds: No Currently Unemployed: No Education: High School Diploma/GED Difficulty w/ Childcare or Family Care: No Spiritual care concerns: No Meds Home Medications and Allergies Home Medications ?Medication ?Instructions ?Recorded ?Confirmed ?Type metformin 1,000 mg tablet 1,000 mg PO BID #180 tabs 12/24/23 11/26/24 Rx lisinopril 10 mg tablet 10 mg PO DAILY #90 tabs 01/07/24 11/26/24 Rx rosuvastatin 10 mg tablet (Crestor) 10 mg PO HS 11/26/24 11/26/24 History tirzepatide 2.5 mg/0.5 mL 2.5 mg subcut WEEKLY 11/26/24 11/26/24 History subcutaneous pen injector (Mounjaro) Allergies Allergy/AdvReac Type Severity Reaction Status Date / Time No Known Allergies Allergy Verified 11/26/24 14:07 Vital Signs Vital Signs - 24 hr 11/26/24 07:45 11/26/24 08:31 Temperature 99.4 F Pulse Rate 115 H Respiratory Rate 20 Blood Pressure 153/81 H Pulse Oximetry 92 95 Oxygen Delivery Room Air Fraction of Inspired Oxygen 21 Exam Narrative: General: Alert, awake, afebrile, in no acute distress. HEENT: PERRL, no rhinorrhea, no post nasal drip, oropharynx clear. Neck: Trachea midline, no JVD, no lymphadenopathy. Cardiovascular: Regular rate and rhythm, no murmurs, rubs or gallops, no peripheral edema. Respiratory: Clear to auscultation bilaterally, no tachypnea, no wheezing, no rhonchi, no rubs, no respiratory distress. Abdomen: Tender right upper quadrant and epigastric area, no rebound, no guarding, no peritoneal signs. Musculoskeletal: No joint swelling or deformity, normal muscle tone. Skin: No rashes or petechia, no signs of infection. Psychiatric: Alert and oriented, normal behavior and judgment for situation. Neurological: Alert and oriented to person, place, and time. Follows all commands. No focal deficits, speech is clear and fluent. H&P: Results Labs Labs: Short CBC 11/26/24 Range/Units 00:54 WBC 18.8 H (4.5-10.0) K/mm3 Hgb 16.8 (14.0-18.0) g/dL Hct 48.5 (42.0-52.0) % Plt Count 197 (150-375) k/mm3 [facility] 11/26/24 00:54 Sodium 136 L Potassium 4.5 Chloride 100 Carbon Dioxide 25 BUN 11 Creatinine 0.75 Glucose 221 H Calcium 8.9 Liver Function 11/26/24 Range/Units 00:54 Total Bilirubin 1.5 H (0.2-1.3) mg/dL AST 54 (17-59) U/L ALT 158 H (6-50) U/L Alkaline Phosphatase 135 H (38-126) U/L Albumin 4.3 (3.5-5.1) g/dL Urine 11/26/24 Range/Units 00:54 Urine Color Dark yellow (Yellow) Urine Appearance Clear (Clear) Urine pH 5.5 (5.0-9.0) Ur Specific [place] 1.041 H (1.001-1.035) Urine Protein 2+ H (Negative) mg/dL Urine Glucose (UA) 3+ H (Negative) mg/dL Assessment and Plan Assessment and plan (1) Acute cholecystitis: Code(s): K81.0 - Acute cholecystitis Status: Acute (2) Abdominal pain: Code(s): R10.9 - Unspecified abdominal pain Status: Acute (3) Diabetes: Code(s): E11.9 - Type 2 diabetes mellitus without complications Status: Acute (4) High cholesterol: Code(s): E78.00 - Pure hypercholesterolemia, unspecified Status: Acute (5) Hypertension: Code(s): I10 - Essential (primary) hypertension Status: Acute Plan Patient is a 49-year-old male who presents emergency department this morning complaining of diffuse abdominal pain, nausea, and constipation. Patient states that his last bowel movement was 4 days ago which is very unusual for him. Patient states that he is also passing very little gas. Denies any recent illness, fevers or chills. In the ED is vitals were stable. Laboratory resolved reviewed leukocytosis of 18.8 glucose of 221 total bilirubin 1.5 ALT 158 alkaline phosphatase 135 otherwise unremarkable UA reveals 3+ glucose 4+ ketones and trace leukocyte esterase. Lipase normal at 44. CT abdomen pelvis with IV contrast showed acute cholecystitis with underlying cholelithiasis General surgery has been consulted patient started on IV Zosyn blood cultures was obtained Acute cholecystitis Hypertension Type 2 diabetes Hyperlipidemia Code status full code DVT prophylaxis SCDs Hospitalist MIPS Advance Care Plan I have confirmed that the patient's Advanced Care Plan is present, code status is documented, or surrogate decision maker is listed in patient medical record.: Yes Medication Reconciliation I have utilized all available resources to obtain, update and review the patients current medications (includes all prescriptions, OTC, herbals, cannabis, and nutritional supplements).: Yes
--- NOTE | 2024-11-26 10:20 | ADMGEN ---
This patient, Joe Antony, was admitted to Medical Room 260-01 at 0820. Patient/family oriented to hospital policies and general routines including ID bracelet, bed and alarms, visiting hours, pain management, procedures, bathroom and other care routines, personal items, smoking policy, room service/diet, and visiting hours. Information on how to activate the Rapid Response Team has been discussed. Patient/Family are encouraged to report perceived risks to care and to ask questions if they do not understand what they are told or what they should do.
--- NOTE | 2024-11-26 11:05 | P.CONGS_ITS ---
Assessment and Plan Assessment and plan (1) Acute cholecystitis: Code(s): K81.0 - Acute cholecystitis Status: Acute Assessment and Plan: Discussed with patient and and decision to proceed with urgent cholecystectomy, continue IV antibiotics and NPO for now (2) Diabetes: Code(s): E11.9 - Type 2 diabetes mellitus without complications Status: Acute Assessment and Plan: stable, continue management per primary team (3) Hypertension: Code(s): I10 - Essential (primary) hypertension Status: Acute Assessment and Plan: stable, continue management per primary team (4) Tobacco abuse: Code(s): Z72.0 - Tobacco use Status: Acute Assessment and Plan: discussed cessation with patient History of Present Illness Consult details Consult date: 11/26/24 Reason for consult: abdominal pain Requesting physician: Leslie oJ MD Narrative: The patient is a 49-year-old male presenting to the emergency department complaining of severe upper abdominal pain. The patient reports the pain has been progressive since Friday. The patient reports associated nausea, poor appetite, constipation. The patient reports he has had intermittent symptoms for the last 6 months. He reports that this is by far the most severe episode. Workup in the emergency department, including imaging, is significant for acute cholecystitis, cholelithiasis. Review of Systems 2 Review of Systems: All systems reviewed & are unremarkable except as noted in HPI and below PMFSH Social History Social History Smoking packs per day: 2 Smoking cigarettes per day: 40.0 Years smoked: 16 Smoking pack-years: 32.00 Smoking status: Current every day smoker Tobacco type: cigarettes Second hand tobacco smoke exposure: Yes Alcohol intake: never Substance use: never Do You Feel Safe in your Home?: Yes Lack of Transportation: No Lack of Food: Never True Current Housing: I Have Housing Concerned About Future Housing: No Difficulty Paying Gas/Electric Bills: No Difficulty Paying for Meds: No Currently Unemployed: No Education: High School Diploma/GED Difficulty w/ Childcare or Family Care: No Spiritual care concerns: No Meds Home Medications and Allergies Home Medications ?Medication ?Instructions ?Recorded ?Confirmed ?Type metformin 1,000 mg tablet 1,000 mg PO BID #180 tabs 12/24/23 11/26/24 Rx lisinopril 10 mg tablet 10 mg PO DAILY #90 tabs 01/07/24 11/26/24 Rx rosuvastatin 10 mg tablet (Crestor) 10 mg PO HS 11/26/24 11/26/24 History tirzepatide 2.5 mg/0.5 mL 2.5 mg subcut WEEKLY 11/26/24 11/26/24 History subcutaneous pen injector (Mounjaro) Allergies Allergy/AdvReac Type Severity Reaction Status Date / Time No Known Allergies Allergy Verified 11/26/24 10:34 Vital Signs Vital Signs - 24 hr 11/26/24 07:45 11/26/24 08:00 11/26/24 08:31 Temperature 37.4 C 36.9 C Pulse Rate 115 H 127 H Respiratory Rate 20 22 H Blood Pressure 153/81 H 152/80 H Pulse Oximetry 92 94 95 Oxygen Delivery Room Air Fraction of Inspired Oxygen 21 Exam 2 Const: General: cooperative, acute distress mild and uncomfortable HENMT: Head: normal to inspection, normocephalic and atraumatic Eyes: General: appearance normal, both eyes and all related structures Neck: Neck: normal visual inspection, full ROM and no lymphadenopathy Resp: Auscultation: clear to auscultation bilaterally Cardio: Rate: regular rate Rhythm: regular rhythm GI: Inspection: normal to inspection, distended and obesity GI Palp: Yes abdominal tenderness, Yes Soft to palpation, Yes Tenderness to palpation present (GI), No Guarding due to palpation present (GI) and No Rigid due to palpation Skin: General skin exam: normal color and no rashes or lesions noted Neuro: General: patient oriented x3 and CN's II-XI intact bilaterally Extrem: General: normal to inspection and full ROM Results Labs 11/26/24 00:54 11/26/24 00:54 Labs: Abnormal lab results 11/26/24 Range/Units 00:54 WBC 18.8 H (4.5-10.0) K/mm3 Neut % (Auto) 81.8 H (45.5-73.1) % Lymph % (Auto) 8.8 L (18.3-44.2) % [place] # (Auto) 1.6 H (0.1-0.6) K/mm3 Abs Immat Gran (auto) 0.10 H (0.00-0.031) K/mm3 Absolute Neuts (auto) 15.4 H (1.3-6.7) K/mm3 Sodium 136 L (137-145) mmol/L Glucose 221 H (65-110) mg/dL Total Bilirubin 1.5 H (0.2-1.3) mg/dL ALT 158 H (6-50) U/L Alkaline Phosphatase 135 H (38-126) U/L Ur Specific [place] 1.041 H (1.001-1.035) Urine Protein 2+ H (Negative) mg/dL Urine Glucose (UA) 3+ H (Negative) mg/dL Urine Ketones 4+ H (Negative) mg/dL Urine Bilirubin 2+ H (Negative) Leukocyte Esterase Rfl Trace H (Negative) SELIN/UL Diabetes panel 11/26/24 Range/Units 00:54 Sodium 136 L (137-145) mmol/L Potassium 4.5 (3.4-5.0) mmol/L Chloride 100 (98-107) mmol/L Carbon Dioxide 25 (22-30) mmol/L BUN 11 (9-20) mg/dL Creatinine 0.75 (0.7-1.3) mg/dL Glucose 221 H (65-110) mg/dL Calcium 8.9 (8.4-10.2) mg/dL AST 54 (17-59) U/L ALT 158 H (6-50) U/L Alkaline Phosphatase 135 H (38-126) U/L Total Protein 8.0 (6.3-8.2) g/dL Albumin 4.3 (3.5-5.1) g/dL Calcium panel 11/26/24 Range/Units 00:54 Calcium 8.9 (8.4-10.2) mg/dL Albumin 4.3 (3.5-5.1) g/dL Pituitary panel 11/26/24 Range/Units 00:54 Sodium 136 L (137-145) mmol/L Potassium 4.5 (3.4-5.0) mmol/L Chloride 100 (98-107) mmol/L Carbon Dioxide 25 (22-30) mmol/L BUN 11 (9-20) mg/dL Creatinine 0.75 (0.7-1.3) mg/dL Glucose 221 H (65-110) mg/dL Calcium 8.9 (8.4-10.2) mg/dL Adrenal panel 04/18/25 Range/Units 00:54 Sodium 136 L (137-145) mmol/L Potassium 4.5 (3.4-5.0) mmol/L Chloride 100 (98-107) mmol/L Carbon Dioxide 25 (22-30) mmol/L BUN 11 (9-20) mg/dL Creatinine 0.75 (0.7-1.3) mg/dL Glucose 221 H (65-110) mg/dL Calcium 8.9 (8.4-10.2) mg/dL Total Bilirubin 1.5 H (0.2-1.3) mg/dL AST 54 (17-59) U/L ALT 158 H (6-50) U/L Alkaline Phosphatase 135 H (38-126) U/L Total Protein 8.0 (6.3-8.2) g/dL Albumin 4.3 (3.5-5.1) g/dL All other labs normal. Imaging Abdomen CT scan report/results: report reviewed and image reviewed
--- NOTE | 2024-11-26 11:16 | WPDHPUPDATE1 ---
History and Physical Update Update Date/Time: 11/26/24 11:16 History and Physical has been reviewed, including an updated exam of the patient. There are NO changes in the patient's condition. Risks, benefits, and alternatives have been discussed and questions answered. Patient agrees to proceed with procedure.
[2024-11-26] MEDS: LACTATED RINGERS 1,000 ML 30 ML IV CONT ×3 (14:10→16:28)
--- NOTE | 2024-11-26 14:37 | WPDANESEPPF ---
Anes - Initial Pre Proc Eval Procedure: Operation Date: 11/26/24 14:30 Proposed Procedures p Laparoscopic Cholecystectomy - Jo Antonio MD Date/Time: 11/26/24 14:37 Surgeon: Gaby Calhoun DO Pre Op Diagnosis: Acute cholecystitis Patient Data Age: 49 Gender: M Height: 1.75 m Weight: 118.6 kg Last Vital Signs Temp 36.9 C 11/26/24 08:00 Pulse 127 H 11/26/24 08:00 Resp 22 H 11/26/24 08:00 BP 152/80 H 11/26/24 08:00 Pulse Ox 95 11/26/24 08:31 O2 Del Method Room Air 11/26/24 10:40 FiO2 21 11/26/24 08:31 Allergies Allergy/AdvReac Type Severity Reaction Status Date / Time No Known Allergies Allergy Verified 11/26/24 14:18 Home Medications ?Medication ?Instructions ?Recorded ?Confirmed ?Type metformin 1,000 mg tablet 1,000 mg PO BID #180 tabs 12/24/23 11/26/24 Rx lisinopril 10 mg tablet 10 mg PO DAILY #90 tabs 01/07/24 11/26/24 Rx rosuvastatin 10 mg tablet (Crestor) 10 mg PO HS 11/26/24 11/26/24 History tirzepatide 2.5 mg/0.5 mL 2.5 mg subcut WEEKLY 11/26/24 11/26/24 History subcutaneous pen injector (Mounjaro) Laboratory Tests 11/26/24 00:54 WBC 18.8 H K/mm3 (4.5-10.0) RBC 5.09 M/mm3 (4.6-6.20) Hgb 16.8 g/dL (14.0-18.0) Hct 48.5 % (42.0-52.0) MCV 95.3 fl (80-100) MCH 33.0 pg (26-34) MCHC 34.6 g/dl (32-36) RDW 12.2 % (11.5-14.5) Plt Count 197 k/mm3 (150-375) MPV 9.7 fl (7.4-10.4) Immature Gran % (Auto) 0.5 % (0-0.5) Neut % (Auto) 81.8 H % (45.5-73.1) Lymph % (Auto) 8.8 L % (18.3-44.2) [place] % (Auto) 8.5 % (2.6-8.5) Eos % (Auto) 0.2 % (0-4.4) Baso % (Auto) 0.2 % (0.2-1.2) Lymph # (Auto) 1.65 K/mm3 (0.9-3.2) [place] # (Auto) 1.6 H K/mm3 (0.1-0.6) Eos # (Auto) 0.0 K/mm3 (0-0.3) Baso # (Auto) 0.0 K/mm3 (0.0-0.1) Abs Immat Gran (auto) 0.10 H K/mm3 (0.00-0.031) Absolute Neuts (auto) 15.4 H K/mm3 (1.3-6.7) Absolute Nucleated RBC 0.000 K/mm3 (0.0-0.012) Nucleated RBC % 0.0 % (0.0-0.2) Sodium 136 L mmol/L (137-145) Potassium 4.5 mmol/L (3.4-5.0) Chloride 100 mmol/L (98-107) Carbon Dioxide 25 mmol/L (22-30) Anion Gap 11 mmol/L (4-12) BUN 11 mg/dL (9-20) Creatinine 0.75 mg/dL (0.7-1.3) Estim Creat Clear Calc 135 ml/min Estimated GFR > 60 (59 - ) Glucose 221 H mg/dL (65-110) Calcium 8.9 mg/dL (8.4-10.2) Total Bilirubin 1.5 H mg/dL (0.2-1.3) AST 54 U/L (17-59) ALT 158 H U/L (6-50) Alkaline Phosphatase 135 H U/L (38-126) Total Protein 8.0 g/dL (6.3-8.2) Albumin 4.3 g/dL (3.5-5.1) Lipase 44 U/L (23-300) Urine Color Dark yellow (Yellow) Urine Appearance Clear (Clear) Urine pH 5.5 (5.0-9.0) Ur Specific [place] 1.041 H (1.001-1.035) Urine Protein 2+ H mg/dL (Negative) Urine Glucose (UA) 3+ H mg/dL (Negative) Urine Ketones 4+ H mg/dL (Negative) Ur Blood (Man) Negative (Negative) Urine Nitrate Negative (Negative) Urine Bilirubin 2+ H (Negative) Urine Urobilinogen 1.0 mg/dL (<2.0) Leukocyte Esterase Rfl Trace H SELIN/UL (Negative) Urine RBC 0-2 /hpf (0-2) Urine WBC 0-5 /hpf (0-3) Ur Squamous Epith Cells None seen /hpf (Few) Urine Bacteria Rare /hpf Urine Casts 3-5 Patient hx anesthesia problems: none Family hx anesthesia problems: none Results Review: All pre-operative results and documents have been reviewed as part of the pre-operative evaluation. [facility] Social History Social History Smoking packs per day: 2 Smoking cigarettes per day: 40.0 Years smoked: 16 Smoking pack-years: 32.00 Smoking status: Current every day smoker Tobacco type: cigarettes Second hand tobacco smoke exposure: Yes Alcohol intake: never Substance use: never Do You Feel Safe in your Home?: Yes Lack of Transportation: No Lack of Food: Never True Current Housing: I Have Housing Concerned About Future Housing: No Difficulty Paying Gas/Electric Bills: No Difficulty Paying for Meds: No Currently Unemployed: No Education: High School Diploma/GED Difficulty w/ Childcare or Family Care: No Spiritual care concerns: No Anes - Eval Final PreProcedure Day of Procedure 11/26/24 14:37 Patient weight: obese Heart: tachycardia Lungs: decreased breath sounds Airway: Mallampati scale Neurological: alert and oriented Last oral intake: >/= 8 hours ASA classification: III Emergent: no Anesthetic plan: proceed Anesthesia type and monitoring: general ETT and standard monitoring Results Review: All pre-operative results and documents have been reviewed as part of the pre-operative evaluation. Informed Consent: The patient's anesthetic plan and its attendant risks and benefits were discussed with the patient/family/POA. Questions were solicited and answers provided to the satisfaction of the patient/family/POA.
[2024-11-26] MEDS: BUPIVACAINE/EPINEPHRINE 0.5% 50 ML VIAL 30 ML INFILTRATE (15:14)
--- NOTE | 2024-11-26 16:22 | W.PM.PROC2 ---
Procedure Note - Detailed Date of Procedure 11/26/24 Pre-op Diagnosis Acute cholecystitis, cholelithiasis Post-op Diagnosis Other ( acute gangrenous cholecystitis, cholelithiasis) Procedure Performed laparoscopic cholecystectomy, extensive lysis adhesions Surgeon Jo Antonio MD Anesthesia General and Local Indications 49-year-old male presenting to the emergency department complaining of severe upper abdominal pain. Workup, including imaging, significant for acute cholecystitis, cholelithiasis. Findings Acute gangrenous cholecystitis with large impacted stone Description of Procedure The patient was taken to the operating room placed in the supine position. After adequate induction of general anesthesia, the patient was prepped and draped in normal sterile fashion. A time-out was then performed to verify the patient's identity as well as the procedure being performed. I then made a 5 mm incision in the infraumbilical region. Through this, a Veress needle was placed into the peritoneal cavity and CO2 gas was then insufflated. After adequate pneumoperitoneum was achieved, the Veress needle was removed and a 5 mm optiview trocar was placed through this incision under direct visualization. I then placed the laparoscope through this trocar site and under direct visualization placed a further 12 mm subxiphoid port as well as 2 additional 5 mm ports in the right upper abdomen. The gallbladder was then identified and was noted to be severely inflamed, distended, and full of gallstones. There was also noted to be changes consistent with gangrenous cholecystitis. Given the amount of distention and inflammation, the gallbladder was decompressed. Very thick bile was then decompressed from the gallbladder, there was noted to be approximately 70 mL aspirated. Once decompressed, I was able to place a grasper at the dome of the gallbladder and this was retracted anterior and cephalad up over the liver. A 2nd retractor was then placed at the infundibulum and retracted laterally, this allowed visualization of the triangle of Calot. The gallbladder again was noted to be very inflamed and friable. Using very careful dissection, I then was able to visualize the cystic duct in its entirety from its proximal insertion into the gallbladder, to its distal junction with the common hepatic/common bile duct junction. At this point, I carefully skeletonized the proximal cystic duct with the [place] dissector. I then clipped and transected the proximal cystic duct. Next I visualized the cystic artery. Again the artery was skeletonized, clipped, and transected. I then used the Bovie cautery to take down the peritoneal attachments of the gallbladder off the liver bed. This was extremely difficult given the amount of inflammation in the posterior space. Near the dome of the gallbladder, the back wall was completely necrotic and peeled off during dissection. Once the gallbladder specimen was completely detached, an endo-pouch was placed through the 12 mm port site. Of note, the incision had to be enlarged to allow extraction of this extremely distended gallbladder with large stones. I then placed the gallbladder specimen into the Endo pouch and removed the endo-pouch from the 12 mm port site. The specimen will now be sent to pathology for further review. I then copiously irrigated the right upper quadrant. Some mild oozing was noted in the liver bed and this was controlled with the bovie cautery. Hemostasis was noted in the liver bed, the clips were noted to be in good position on both the cystic duct stump and the cystic artery stump. No other pathology was noted in the right upper quadrant. I then moved the laparoscope to the subxiphoid port. No iatrogenic injury or other pathology was noted in the lower abdomen. I then closed the 12 mm trocar site under direct visualization using the Thomas cone and 0 Vicryl suture. At this point, the abdomen was desufflated and all ports removed. All port sites were then closed with 4.O Monocryl subcuticular sutures. Dermabond was placed on each incision. The patient tolerated the procedure well, was extubated in the operating room postoperative and will be transferred to the recovery room in stable condition Estimated Blood Loss 25 Drains No Packing No Pathology Yes Complications No immediate complications Condition Stable Disposition PACU [facility] Billing Surgery - Charge Forward: Surgery Billing
[2024-11-26] MEDS: ALBUTEROL SULFATE NEB 2.5 MG/3 ML INH 1.25 MG INHALATION (17:40)
[2024-11-27] VITALS: BP 128/54; PULSE 86; RESP 18; TEMP 36.6; O2SAT 98
[2024-11-27 04:00] VITALS: BP 126/70; PULSE 87; RESP 18; TEMP 36.4; O2SAT 97
[2024-11-27 06:12] VITALS: BP 127/68; PULSE 93; RESP 18; TEMP 36.7; O2SAT 96
[2024-11-27 07:42] VITALS: O2SAT 96
[2024-11-27 08:00] VITALS: BP 133/67; PULSE 96; RESP 18; TEMP 36.7; O2SAT 96
[2024-11-27 08:49] LABS: Glucose Point of Care 175 mg/dl (65-105)
[2024-11-27 09:35] LABS: Basophils Percent Auto 0.1 % (0.2-1.2); Eosinophils Percent Auto 0.1 % (0-4.4); Hematocrit 43.3 % (42.0-52.0); Hemoglobin 14.2 g/dL (14.0-18.0); Immature Granulocyte Absolute 0.07 K/mm3 (0.00-0.031); Immature Granulocyte Percent A 0.5 % (0-0.5); Lymphocytes Absolute Auto 1.48 K/mm3 (0.9-3.2); Lymphocytes Percent Auto 9.7 % (18.3-44.2); Mean Corpuscular HGB Conc 32.8 g/dl (32-36); Mean Corpuscular Hemoglobin 32.8 pg (26-34); Mean Platelet Volume 9.9 fl (7.4-10.4); Monocytes Absolute Auto 0.9 K/mm3 (0.1-0.6); Monocytes Percent Auto 6.1 % (2.6-8.5); Neutrophils Absolute Auto 12.7 K/mm3 (1.3-6.7); Neutrophils Percent Auto 83.5 % (45.5-73.1); Platelet Count Result 192 k/mm3 (150-375); Red Blood Count 4.33 M/mm3 (4.6-6.20); Red Cell Distribution Width 12.7 % (11.5-14.5); White Blood Count 15.2 K/mm3 (4.5-10.0)
[2024-11-27 09:44] LABS: Alanine Aminotransferase 253 U/L (6-50); Albumin Level 3.4 g/dL (3.5-5.1); Alkaline Phosphatase 111 U/L (38-126); Anion Gap 6 mmol/L (4-12); Aspartate Amino Transferase 206 U/L (17-59); Bilirubin,Total 0.7 mg/dL (0.2-1.3); Blood Urea Nitrogen 14 mg/dL (9-20); Calcium 8.2 mg/dL (8.4-10.2); Carbon Dioxide 26 mmol/L (22-30); Chloride 102 mmol/L (98-107); Estimated CRCL calculation 129 ml/min; Estimated Glomerular Filt Rate > 60; Glucose 242 mg/dL (65-110); Magnesium 2.6 mg/dL (1.6-2.3); Potassium 4.2 mmol/L (3.4-5.0); Sodium 134 mmol/L (137-145)
[2024-11-27] MEDS: HYDROcodone/acetaminophen (*CRX) 5-325 MG TABLET 1 TAB PO (09:54)
--- NOTE | 2024-11-27 10:16 | P.PNGS_ITS ---
Progress Note: A&P Assessment and Plan (1) Acute cholecystitis: Code(s): K81.0 - Acute cholecystitis Status: Acute Assessment and Plan: * Doing well on postop day 1. * Okay to discharge this afternoon if tolerating a low-fat diet for lunch. * Follow-up with Dr. Antonio 2 weeks in office. Subjective Subjective Date/Time Seen: 11/27/24 10:16 Interval history: Doing well on postop day 1. Tolerating liquids so far. Has not had solid food yet. Pain much better than when he presented. Mostly dealing with typical postop pain. Denies fevers. Exam GI: Inspection: incision (Intact with glue) GI Palp: Yes Soft to palpation, Yes Tenderness to palpation present (GI) (Incisional) and No Guarding due to palpation present (GI) Objective Data Vital Signs Vital Signs: Vital Signs - 24 hr 11/26/24 10:40 11/26/24 12:00 11/26/24 16:00 Temperature 98.5 F 98.2 F Pulse Rate 115 H 112 H Respiratory Rate 20 20 Blood Pressure 148/76 H 151/79 H Pulse Oximetry 93 94 Oxygen Delivery Room Air Oxygen Flow Rate Fraction of Inspired Oxygen 11/26/24 16:28 11/26/24 16:43 11/26/24 16:58 Temperature 100.6 F H Pulse Rate 113 H 110 H 111 H Respiratory Rate 25 H 22 H 24 H Blood Pressure 115/51 L 132/71 136/74 Pulse Oximetry 93 97 100 Oxygen Delivery Simple Face Mask Simple Face Mask Simple Face Mask Oxygen Flow Rate 8 8 8 Fraction of Inspired Oxygen 11/26/24 17:13 11/26/24 17:28 11/26/24 17:40 Temperature Pulse Rate 110 H 117 H 112 H Respiratory Rate 24 H 20 22 H Blood Pressure 136/74 136/72 Pulse Oximetry 90 93 Oxygen Delivery Nasal Cannula Nasal Cannula Oxygen Flow Rate 3 2 Fraction of Inspired Oxygen 11/26/24 17:43 11/26/24 17:47 11/26/24 17:53 Temperature Pulse Rate 108 H 107 H 112 H Respiratory Rate 19 18 28 H Blood Pressure 144/80 H 150/102 H Pulse Oximetry 97 92 Oxygen Delivery Nasal Cannula Nasal Cannula Oxygen Flow Rate 2 2 Fraction of Inspired Oxygen 11/26/24 20:00 11/26/24 20:00 11/27/24 00:00 Temperature 98.1 F 97.9 F Pulse Rate 96 86 Respiratory Rate 18 18 Blood Pressure 125/64 128/54 L Pulse Oximetry 98 98 98 Oxygen Delivery Nasal Cannula Oxygen Flow Rate 2 Fraction of Inspired Oxygen 11/27/24 04:00 11/27/24 06:12 11/27/24 07:42 Temperature 97.5 F L 98.0 F Pulse Rate 87 93 Respiratory Rate 18 18 Blood Pressure 126/70 127/68 Pulse Oximetry 97 96 96 Oxygen Delivery Room Air Oxygen Flow Rate Fraction of Inspired Oxygen 21 11/27/24 08:00 Temperature 98.1 F Pulse Rate 96 Respiratory Rate 18 Blood Pressure 133/67 Pulse Oximetry 96 Oxygen Delivery Oxygen Flow Rate Fraction of Inspired Oxygen Intake/Output Intake/Output: Intake & Output 11/24/24 11/25/24 11/26/24 11/27/24 23:59 23:59 23:59 23:59 Intake Total 3180 480 Balance 3180 480 Meds/Results Medications: Active Medications Generic Name Dose Route Start Last Admin Trade Name Freq PRN Reason Stop Dose Admin Hydrocodone Bitart/Acetaminophen 1 tab 11/26/24 18:10 11/27/24 09:54 Hydrocodone/Acetaminophen (*Crx) 5-325 Mg Tablet PO 1 tab Q4H PRN Administration Pain Rated 4-6 Hydromorphone HCl 1 mg 11/26/24 06:49 11/26/24 12:30 Hydromorphone Hcl Inj (*Crx) 2 Mg/Ml Vial IV PUSH 1 mg Q3H PRN Administration Pain Rated 7-10 Radiology Results: ITS Impressions Abdomen/Pelvis CT 11/26/24 06:19 Impression: Acute cholecystitis with underlying cholelithiasis. Labs Labs: Laboratory Results - last 24 hr 11/27/24 11/27/24 08:37 09:27 WBC 15.2 H RBC 4.33 L Hgb 14.2 Hct 43.3 MCV 100.0 MCH 32.8 MCHC 32.8 RDW 12.7 Plt Count 192 MPV 9.9 Immature Gran % (Auto) 0.5 Neut % (Auto) 83.5 H Lymph % (Auto) 9.7 L [place] % (Auto) 6.1 Eos % (Auto) 0.1 Baso % (Auto) 0.1 L Lymph # (Auto) 1.48 [place] # (Auto) 0.9 H Eos # (Auto) 0.0 Baso # (Auto) 0.0 Abs Immat Gran (auto) 0.07 H Absolute Neuts (auto) 12.7 H Absolute Nucleated RBC 0.000 Nucleated RBC % 0.0 Sodium 134 L Potassium 4.2 Chloride 102 Carbon Dioxide 26 Anion Gap 6 BUN 14 Creatinine 0.77 Estim Creat Clear Calc 129 Estimated GFR > 60 Glucose 242 H POC Capillary Glucose 175 H Calcium 8.2 L Magnesium 2.6 H Total Bilirubin 0.7 AST 206 H ALT 253 H Alkaline Phosphatase 111 Total Protein 7.0 Albumin 3.4 L
[2024-11-27 12:00] VITALS: BP 131/72; PULSE 90; RESP 16; TEMP 36.8; O2SAT 98
[2024-11-27 12:06] LABS: Glucose Point of Care 157 mg/dl (65-105)
--- NOTE | 2024-11-27 16:13 | P.DS_ITS ---
DS: Admitting Diagnosis Discharge Date 11/27/2024 Admitting Diagnosis Abdominal pain DS: Discharge Diagnosis Discharge Diagnosis (1) Acute cholecystitis: Code(s): K81.0 - Acute cholecystitis Status: Acute (2) Abdominal pain: Code(s): R10.9 - Unspecified abdominal pain Status: Acute (3) Diabetes: Code(s): E11.9 - Type 2 diabetes mellitus without complications Status: Acute (4) High cholesterol: Code(s): E78.00 - Pure hypercholesterolemia, unspecified Status: Acute (5) Hypertension: Code(s): I10 - Essential (primary) hypertension Status: Acute DS: Summary Hospital Course Hospital Course: Patient is a 49-year-old male who presents emergency department this morning complaining of diffuse abdominal pain, nausea, and constipation. Patient states that his last bowel movement was 4 days ago which is very unusual for him. Patient states that he is also passing very little gas. Denies any recent illness, fevers or chills. In the ED is vitals were stable. Laboratory resolved reviewed leukocytosis of 18.8 glucose of 221 total bilirubin 1.5 ALT 158 alkaline phosphatase 135 otherwise unremarkable UA reveals 3+ glucose 4+ ketones and trace leukocyte esterase. Lipase normal at 44. CT abdomen pelvis with IV contrast showed acute cholecystitis with underlying cholelithiasis General surgery has been consulted patient started on IV Zosyn blood cultures was obtained which remained negative. He was diagnosed with acute cholecystitis. He underwent laparoscopic cholecystectomy on 11/26/2024. Postoperative course was uneventful and diet was advanced which she tolerated well. Will follow up with General surgery as outpatient basis Time Spent with Patient Time attestation: Total time spent providing and/or coordinating discharge services: 35 minutes Exam Narrative: General: Alert, awake, afebrile, in no acute distress. HEENT: PERRL, no rhinorrhea, no post nasal drip, oropharynx clear. Neck: Trachea midline, no JVD, no lymphadenopathy. Cardiovascular: Regular rate and rhythm, no murmurs, rubs or gallops, no peripheral edema. Respiratory: Clear to auscultation bilaterally, no tachypnea, no wheezing, no rhonchi, no rubs, no respiratory distress. Abdomen: Surgical incision sites clean dry and intact, no rebound, no guarding, no peritoneal signs. Musculoskeletal: No joint swelling or deformity, normal muscle tone. Skin: No rashes or petechia, no signs of infection. Psychiatric: Alert and oriented, normal behavior and judgment for situation. Neurological: Alert and oriented to person, place, and time. Follows all commands. No focal deficits, speech is clear and fluent. DS: Data Data Completed and Pending Pending studies at discharge: Pending at discharge 11/26/24 16:06 Surgical [PTH] Routine Labs on day of discharge: Labs from last 24 hours 11/27/24 11/27/24 11/27/24 12:02 09:27 08:37 WBC 15.2 H RBC 4.33 L Hgb 14.2 Hct 43.3 MCV 100.0 MCH 32.8 MCHC 32.8 RDW 12.7 Plt Count 192 MPV 9.9 Immature Gran % (Auto) 0.5 Neut % (Auto) 83.5 H Lymph % (Auto) 9.7 L [place] % (Auto) 6.1 Eos % (Auto) 0.1 Baso % (Auto) 0.1 L Lymph # (Auto) 1.48 [place] # (Auto) 0.9 H Eos # (Auto) 0.0 Baso # (Auto) 0.0 Abs Immat Gran (auto) 0.07 H Absolute Neuts (auto) 12.7 H Absolute Nucleated RBC 0.000 Nucleated RBC % 0.0 Sodium 134 L Potassium 4.2 Chloride 102 Carbon Dioxide 26 Anion Gap 6 BUN 14 Creatinine 0.77 Estim Creat Clear Calc 129 Estimated GFR > 60 Glucose 242 H POC Capillary Glucose 157 H 175 H Calcium 8.2 L Magnesium 2.6 H Total Bilirubin 0.7 AST 206 H ALT 253 H Alkaline Phosphatase 111 Total Protein 7.0 Albumin 3.4 L Preliminary micro results at discharge 11/26/24 07:20 Blood Culture - Preliminary Blood 11/26/24 07:45 Blood Culture - Preliminary Blood Procedures/Treatments: Procedure Note - Detailed Date of Procedure 11/26/24 Pre-op Diagnosis Acute cholecystitis, cholelithiasis Post-op Diagnosis Other ( acute gangrenous cholecystitis, cholelithiasis) Procedure Performed laparoscopic cholecystectomy, extensive lysis adhesions Surgeon Jo Antonio MD Anesthesia General and Local Indications 49-year-old male presenting to the emergency department complaining of severe upper abdominal pain. Workup, including imaging, significant for acute cholecystitis, cholelithiasis. Findings Acute gangrenous cholecystitis with large impacted stone Description of Procedure The patient was taken to the operating room placed in the supine position. After adequate induction of general anesthesia, the patient was prepped and draped in normal sterile fashion. A time-out was then performed to verify the patient's identity as well as the procedure being performed. I then made a 5 mm incision in the infraumbilical region. Through this, a Veress needle was placed into the peritoneal cavity and CO2 gas was then insufflated. After adequate pneumoperitoneum was achieved, the Veress needle was removed and a 5 mm optiview trocar was placed through this incision under direct visualization. I then placed the laparoscope through this trocar site and under direct visualization placed a further 12 mm subxiphoid port as well as 2 additional 5 mm ports in the right upper abdomen. The gallbladder was then identified and was noted to be severely inflamed, distended, and full of gallstones. There was also noted to be changes consistent with gangrenous cholecystitis. Given the amount of distention and inflammation, the gallbladder was decompressed. Very thick bile was then decompressed from the gallbladder, there was noted to be approximately 70 mL aspirated. Once decompressed, I was able to place a grasper at the dome of the gallbladder and this was retracted anterior and cephalad up over the liver. A 2nd retractor was then placed at the infundibulum and retracted laterally, this allowed visualization of the triangle of Calot. The gallbladder again was noted to be very inflamed and friable. Using very careful dissection, I then was able to visualize the cystic duct in its entirety from its proximal insertion into the gallbladder, to its distal junction with the common hepatic/common bile duct junction. At this point, I carefully skeletonized the proximal cystic duct with the [place] dissector. I then clipped and transected the proximal cystic duct. Next I visualized the cystic artery. Again the artery was skeletonized, clipped, and transected. I then used the Bovie cautery to take down the peritoneal attachments of the gallbladder off the liver bed. This was extremely difficult given the amount of inflammation in the posterior space. Near the dome of the gallbladder, the back wall was completely necrotic and peeled off during dissection. Once the gallbladder specimen was completely detached, an endo-pouch was placed through the 12 mm port site. Of note, the incision had to be enlarged to allow extraction of this extremely distended gallbladder with large stones. I then placed the gallbladder specimen into the Endo pouch and removed the endo-pouch from the 12 mm port site. The specimen will now be sent to pathology for further review. I then copiously irrigated the right upper quadrant. Some mild oozing was noted in the liver bed and this was controlled with the bovie cautery. Hemostasis was noted in the liver bed, the clips were noted to be in good position on both the cystic duct stump and the cystic artery stump. No other pathology was noted in the right upper quadrant. I then moved the laparoscope to the subxiphoid port. No iatrogenic injury or other pathology was noted in the lower abdomen. I then closed the 12 mm trocar site under direct visualization using the Thomas cone and 0 Vicryl suture. At this point, the abdomen was desufflated and all ports removed. All port sites were then closed with 4.O Monocryl subcuticular sutures. Dermabond was placed on each incision. The patient tolerated the procedure well, was extubated in the operating room postoperative and will be transferred to the recovery room in stable condition Estimated Blood Loss 25 Drains No Packing No Pathology Yes Complications No immediate complications Condition Stable Disposition PACU [facility] Billing Surgery - Charge Forward: Surgery Billing Imaging Radiologist's impression: ITS Impressions Abdomen/Pelvis CT 11/26/24 06:19 Impression: Acute cholecystitis with underlying cholelithiasis. Discharge Plan Discharge Attending physician on discharge: Yash Ventura Consulting providers: Jo Antonio Discharging Clinician: Yash Ventura Anticipated Discharge Date/Time: 11/27/24 16:16 Patient Disposition: Home Activity: as tolerated Diet: as tolerated Wound Care Instructions: incision open to air Discharge Instructions: DISCHARGE INSTRUCTION SHEET FOR HERNIA, GALLBLADDER AND APPENDIX SURGERIES DR. ANTONIO PATIENT TO TAKE HOME 1. May shower in 24 hours, no soaking in bath x 2weeks. 2. Call office for: * Wound increasingly painful or bleeding * Vomiting * Fever of greater than 101 degrees 3. If no bowel movement for three days, take 1 oz. (30 ml) Milk of Magnesia or MiraLax 17g 1 to 2 times daily. 4. No heavy lifting > 10-15 pounds x 6 weeks for hernia repairs and 2 weeks for laparoscopic cholecystectomy or appendectomy. 5. No driving for 3 days or while taking narcotic pain medications. 6. Ice to surgical site for 48 hours (30 min on, then 30 min off). 7. Up walking 10-30 minutes three times per day. 8. Resume previous home medications. 9. Follow-up 10-14 days in office for wound check or as previously scheduled. ([phone]) 10. Oral pain medications prescription to be sent to pharmacy. Take Tylenol 500mg every 6 hours and Ibuprofen 600mg every 6 hours for the first 2 days, then as needed. 11. NUTRITION: Start out by drinking fluids and increase your diet as tolerated. If you experience nausea, try dry toast, crackers, and 7-UP. If nausea or vomiting persists, contact your surgeon?s office. 12. Gallbladders-Low Fat Diet for 2 weeks (send care note of low fat diet) 13. Inguinal Hernias-wear scrotal support for 48 hours 14. Abdominal Hernias-if sent home with abdominal binder, wear for the first 2 weeks (may remove to shower or at night to sleep). Revised 08/2020 Patient Instructions: Antibiotic Form Patient Language: Norwegian Stand Alone Forms: General Discharge Information Follow-up/Referrals: Jo Antonio MD [Physician] - 2 Weeks ADRIAN,ALYSHA JOSEPH [Primary Care Provider] - 1 Week Discharge Medications: New hydrocodone-acetaminophen 5-325 mg tablet 1 tablet PO Q6H PRN (Reason: pain) Qty: 30 0RF docusate sodium [Colace] 100 mg capsule 100 mg PO BID Qty: 30 0RF Continued Mounjaro 2.5 mg/0.5 mL pen injector 2.5 mg subcut WEEKLY Patient Comments: patient takes on Wednesdays Rx Instructions: for 4 weeks rosuvastatin [Crestor] 10 mg tablet 10 mg PO HS metformin 1,000 mg tablet 1,000 mg PO BID Qty: 180 6RF lisinopril 10 mg tablet 10 mg PO DAILY Qty: 90 0RF Other Ambulatory Orders: Comprehensive Metabolic Panel (Routine) Timeframe: 1 Week Location: Determined by Patient Ordered By: Yash Ventura Date of admission: 11/26/24 07:22 Primary Care Provider: ADRIANOPAL Admitting Provider: Gaby Calhoun Attending physician on admission: Gaby Calhoun Condition: Improved
== END 2024-11-27 16:45 | disposition home or self-care (01) | DRG 419 ==
LOC: ANHED 07:03 → ANH2MED 15:00
PROVIDERS: Surgery; Admitting Provider Internal Medicine; Emergency Provider Emergency Medicine; PCP Nurse Practitioner Family; Visit Provider Internal Medicine
PROC: 0FT44ZZ Resection of Gallbladder, Percutaneous Endoscopic Approach (ICD-10-PCS; CPT 47562; principal; 2024-11-26 14:30)
DX: K80.00 Calculus of gallbladder with acute cholecystitis without obstruction (principal); K82.A1 Gangrene of gallbladder in cholecystitis; E11.9 Type 2 diabetes mellitus without complications; E78.00 Pure hypercholesterolemia, unspecified; I10 Essential (primary) hypertension
CPT/HCPCS: 36415; 74177; 80053; 81001; 82948; 83690; 83735; 85025; 87040; 88304; 93005; 94640; 96361; 96365; 96375; 96376; 99285; A9270; J1100; J1171; J2250; J2270; J2405; J2543; J2704; J3010; J7030; J7120; Q9967